=== PATIENT | female | born 1985 ===

== ENCOUNTER 2018-01-21 17:21 | Emergency (ER) | payer SELFPAY ==
[2018-01-21 18:08] LABS: Basophils % (Auto) 0.5 % (0.0-1.8); Eosinophils # (Auto) 0.1 K/mm3 (0.0-0.4); Eosinophils % (Auto) 1.1 % (0.0-4.3); Hematocrit 39.4 % (30.3-42.9); Hemoglobin 13.4 gm/dl (10.1-14.3); Lymphocytes # (Auto) 1.7 K/mm3 (1.2-5.4); Lymphocytes % (Auto) 26.3 % (13.4-35.0); Mean Corpuscular HGB Conc 34 % (30-34); Mean Corpuscular Hemoglobin 27 pg (28-32); Mean Corpuscular Volume 79 fl (79-97); Monocytes # (Auto) 0.5 K/mm3 (0.0-0.8); Monocytes % (Auto) 6.9 % (0.0-7.3); Platelet Count 216 K/mm3 (140-440); Red Blood Count 4.99 M/mm3 (3.65-5.03); Red Cell Distribution Width 14.1 % (13.2-15.2)
[2018-01-21 18:24] LABS: Alanine Aminotransferase 21 units/L (7-56); Albumin 4.4 g/dL (3.9-5); BUN/Creatinine Ratio 20; Blood Urea Nitrogen 8 mg/dL (7-17); Calcium 9.5 mg/dL (8.4-10.2); Hemolysis Index 4
[2018-01-21 18:43] LABS: Bacteria,Urine 1+ /HPF (Negative); Bilirubin,Urine NEG (Negative); Blood,Urine MOD (Negative); Color,Urine Yellow (Yellow); Mucus,Urine 1+ /HPF; Protein,Urine <15 mg/dL mg/dL (Negative); Urobilinogen,Urine < 2.0 mg/dL (<2.0)
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
[2018-01-21] MEDS ORDERED: NACL 0.9% 1000 ML 1,000 ML IV ONE (20:30)
[2018-01-21] MEDS ORDERED: MORPHINE IV ONE (20:30)
[2018-01-21] MEDS ORDERED: ZOFRAN IV ONE (20:30)
--- NOTE | 2018-01-21 21:45 | XRay Report ---
FINAL REPORT EXAM: XR KNEE 1-2V LT HISTORY: lt knee pain TECHNIQUE: Frontal and lateral views left knee Comparison: None FINDINGS: There is no evidence of fracture, subluxation, lytic or blastic change or periosteal reaction. The joint spaces are maintained. The soft tissues are unremarkable IMPRESSION: 1. No plain film evidence of bony or soft tissue abnormality.
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
[2018-01-22 00:40] VITALS: BP 122/76
== END 2018-01-22 01:40 | disposition home or self-care (01) ==
LOC: ED 17:21
DX: S00.93XA Contusion of unspecified part of head, initial encounter (principal); S20.229A Contusion of unspecified back wall of thorax, initial encounter; Y04.2XXA Assault by strike against or bumped into by another person, initial encounter; Y93.89 Activity, other specified; Y99.8 Other external cause status; Y92.019 Unspecified place in single-family (private) house as the place of occurrence of the external cause
CPT/HCPCS: 36415; 70450; 71275; 73560; 74174; 80053; 81001; 82550; 83690; 84703; 85025; 87535; 93005; 93010; 96374; 96375; 99285; J2270; J2405; J7030; Q9967